=== PATIENT | female | born 1945 | race Caucasian/White ===

== ENCOUNTER 2017-10-06 14:04 | Observation (INO) | payer MEDICARE ==
[~2017-10-06 14:04] MED LIST: ISOVUE-370 76%-LOCM 1 ML ONE
[2017-10-06] MEDS ORDERED: Labetalol HCl 100 MG/20 ML VIAL ONE (15:52)
--- NOTE | 2017-10-06 16:30 | CT ---
CT ANGIOGRAM OF HEAD WITH CONTRAST CT ANGIOGRAM OF NECK WITH CONTRAST Date: 10/06/17 Time: 3:28 p.m. HISTORY: 72-year-old female with acute stroke symptoms: left facial, left lower extremity, and left upper extr emity paresthesia. This stat stroke protocol report was called to Liset Mancia of the ER at 3:45 p.m. on 10/06/17. TECHNIQUE: IV contrast bolus injection. Arterial bolus chasing technique scan from aortopulmonic window to vertex of head. Coronal and sagittal 3D MIP reconstructions. FINDINGS: A2 segment of right anterior cerebral artery is supplied by anterior communicating artery. The A1 seg ment of the right anterior cerebral artery is developmentally absent. There is a right posterior comm unicating artery. There is no thrombus in the M1 segments of the bilateral middle cerebral arteries o r in the carotid siphons. There is no thrombosis or occlusion of the proximal branches of the middle cerebral arteries or the A2 segments of the anterior cerebral arteries. Left vertebral artery is shalonda nant. No high grade focal short segment stenosis or occlusion of the intracranial vertebral arteries or basilar artery. Proximal portions of bilateral superior cerebral arteries and posterior cerebral a rteries are patent. No intracranial aneurysm identified. There is tortuosity of the upper cervical portions of bilateral internal carotid arteries just inferi or to the skull base, with hairpin turns bilaterally. Noncalcified plaque at proximal right internal carotid artery, causing mild, less than 50% stenosis. The only calcified plaque in the carotid system is heavily calcified plaque in the left proximal inte rnal carotid artery for several centimeters, causing mild stenosis. No high grade stenosis of the cer vical vertebral arteries, brachiocephalic artery, bilateral common carotid arteries, or bilateral sub clavian arteries. Nonspecific 1.5 x 1 cm left thyroid nodule. IMPRESSION: 1. No evidence of occlusion or high grade stenosis in the proximal [place] of [place] arteries or major cervical arteries. 2. Noncalcified atherosclerotic plaque causing 30% stenosis of the proximal right internal carot id artery. 3. Heavily calcified atherosclerotic plaque causing 20% stenosis of the proximal left internal c arotid artery. Code CR POS: DANIEL
--- NOTE | 2017-10-06 17:27 | MRI ---
BRAIN MRI WITHOUT CONTRAST: 10/06/17 HISTORY: Stroke. Left sided facial, arm and leg numbness. COMPARISON: None. TECHNIQUE: Brain MRI is performed without intravenous gadolinium administration. Multisequential, multiplanar im aging is performed. FINDINGS: No hemorrhage on the axial gradient echo sequence. The calvarium has a normal T1 marrow signal intensity. Midline brain parenchymal structures are unrem arkable. Minimal T2 and FLAIR white matter hyperintensity due to chronic small vessel ischemic change. Adequate aeration of the sinuses and mastoid air cells. Central arterial flow voids are maintained. Absence restricted diffusion. No parenchymal mass, mass effect or midline shift. Brain volume is age appropriate. Cortical natarajan-whi te matter differentiation is preserved. IMPRESSION: 1. Minimal chronic small vessel ischemic changes white matter. 2. Absent restricted diffusion. No acute infarct. POS: DANIEL
[2017-10-06 18:10] VITALS: BMI 29.3
[2017-10-06 18:22] LABS: Hemoglobin A1c 5.4 % (4.0-6.0)
[2017-10-06] MEDS: Acetaminophen 325 MG TAB PO PRN (18:29)
[2017-10-06 18:44] LABS: CKMB 0.8 ng/mL (0-6.6); Troponin I Less than 0.010 ng/mL (< 0.028)
--- NOTE | 2017-10-06 19:16 | HP ---
PRIMARY CARE PHYSICIAN: Vicente Diana M.D. CHIEF COMPLAINT: Left-sided facial numbness and tingling. HISTORY OF PRESENT ILLNESS: The patient is a very pleasant 72-year-old female with history of hypert ension, who presents to the hospital with complaints of left-sided facial numbness and tingling, left upper extremity and left lower extremity tingling sensation since yesterday. Patient stated that ar ound 6:30 p.m. yesterday, she was up and outside doing some work when she started feeling this tingli ng sensation to her left lower side of the face including the upper lip and lower lip and left tongue and also left upper extremity and left lower extremity. At that time, she went back home. She took an Advil and laid on the couch. Patient stated that she started feeling well and then she had her d inner and went to bed. Patient stated that she woke up this morning, had some residual left-sided fa cial numbness and tingling; however, the left upper extremity and left lower extremity tingling sensa tion had resolved. The patient then went to her PCP since she did have the continuous residual of th is tingling sensation and at that time, the PCP told her to come into the ER for further evaluation. Patient currently continues to have left upper lip and left lower lip residual tingling sensation wi th also a left lung tingling sensation. She denies any nausea, vomiting, diarrhea, abdominal pain, c hest pain, shortness of breath. Denies any visual field deficits or any headaches. The patient stat es that this has never happened to her before. PAST MEDICAL HISTORY: Hypertension, borderline high cholesterol. ALLERGIES: Rubbing iodine for skin prep, so TETANUS VACCINE AND TOXOID, but she is not allergic to I V iodine. PAST SURGICAL HISTORY: She had a cholecystectomy, hysterectomy, and a right knee surgery. FAMILY HISTORY: She denies any history of heart disease. MEDICATIONS: She takes losartan 100 mg q.a.m., metformin 50 mg at bedtime, Singulair 10 mg p.r.n., N orvasc 5 mg at bedtime. REVIEW OF SYSTEMS: The following complete review of systems was negative, unless otherwise mentioned in the HPI or below: Constitutional: Weight loss or gain, ability to conduct usual activities. Sk in: Rash, itching. Eyes: Double vision, pain. ENT/Mouth: Nose bleeding, neck stiffness, pain, te nderness. Cardiovascular: Palpitations, dyspnea on exertion, orthopnea. Respiratory: Shortness of breath, wheezing, cough, hemoptysis, fever or night sweats. Gastrointestinal: Poor appetite, abdom inal pain, heartburn, nausea, vomiting, constipation, or diarrhea. Genitourinary: Urgency, frequenc y, dysuria, nocturia. Musculoskeletal: Pain, swelling. Neurologic/Psychiatric: Anxiety, depressio n. Allergy/Immunologic: Skin rash, bleeding tendency. SOCIAL HISTORY: The patient denies any alcohol use; however, is a former smoker, 1-2 cigarettes. Codie pink still smokes sometimes when she gets stressed. PHYSICAL EXAMINATION: VITAL SIGNS: Afebrile at 96.3, respirations are 18, blood pressure 186/78. She is 100% on room air, pulse is 83. GENERAL: She is awake, alert, oriented x3, does not appear in distress. CARDIOVASCULAR: S1, S2 present. No murmurs, rubs or gallops. LUNGS: Clear to auscultation. No rhonchi, wheeze is noted. ABDOMEN: Soft, nontender. Bowel sounds presents x2. No hepatomegaly, splenomegaly noted. EXTREMITIES: No lower extremity edema. NEUROLOGIC: Vascular rodriguez, 5/5 upper extremity strength, 5/5 lower extremity strength. Sensation in tact bilateral upper and lower extremities. She does have some sensory deficit to her left lower lip and left upper lip area compared to her right upper and lower lip. No tongue deviation noted. LABORATORY DATA: As following: WBC is 8.3, hemoglobin of 14.0, hematocrit 45.0, platelets of 372. Chemistry: Sodium 136, potassium 3.9, BUN of 11, creatinine 0.75. Troponins x1 is negative. The patient had a CT head that showed no evidence of acute intracranial abnormalities. She also had a CTA done in the ER that indicated no evidence of occlusion in the high grade stenosis. She does fishman ve atherosclerotic plaque of 30% stenosis of the proximal right internal carotid artery and heavily c alcified atherosclerotic plaque, mid plaque causing mild 20% stenosis of the left proximal internal c arotid artery. ASSESSMENT AND PLAN: The patient is a very pleasant 72-year-old female who presents to the hospital with tingling of her left lower lip area. 1. Transient ischemic attack. We will start the patient on aspirin. She does not take aspirin rodney y. We will start the patient on a statin. We will check lipid level in the morning. We will do MRI brain. We will get Neurology consult. 2. Hypertension. We will continue some of her home medications. We will continue to monitor closel y. 3. Deep venous thrombosis prophylaxis. We will put patient on subcu heparin.
[2017-10-06] MEDS: Atorvastatin Calcium 40 MG TAB PO SCH (20:01)
[2017-10-06] MEDS: Heparin 5,000 UNITS/ML VIAL SC SCH (20:14)
[2017-10-06] MEDS ORDERED: Morphine 4 MG/ML VIAL SLOW IVP SCH (22:15)
[2017-10-07] MEDS: Zolpidem Tartrate 5 MG TAB PO SCH (00:25)
[2017-10-07] MEDS ORDERED: HYDROcodone/Acetaminophen 5/325 mg Tablet PO SCH ×2 (00:30→06:00)
[2017-10-07] MEDS ORDERED: Ondansetron HCl/PF 4 MG/2 ML Vial SLOW IVP SCH (06:00)
[2017-10-07 06:28] LABS: Cardiac Risk 4.8 (Less than 4.5)
[2017-10-07] MEDS: Aspirin 81 mg Enteric Coated Tablet PO SCH (09:55)
[2017-10-07] MEDS: Heparin 5,000 UNITS/ML VIAL SC SCH ×2 (09:55→20:42)
--- NOTE | 2017-10-07 10:56 | CT ---
CT ANGIOGRAM OF HEAD WITH CONTRAST CT ANGIOGRAM OF NECK WITH CONTRAST Date: 10/06/17 Time: 3:28 p.m. HISTORY: 72-year-old female with acute stroke symptoms: left facial, left lower extremity, and left upper extr emity paresthesia. This stat stroke protocol report was called to Liset Mancia of the ER at 3:45 p.m. on 10/06/17. TECHNIQUE: IV contrast bolus injection. Arterial bolus chasing technique scan from aortopulmonic window to vertex of head. Coronal and sagittal 3D MIP reconstructions. FINDINGS: A2 segment of right anterior cerebral artery is supplied by anterior communicating artery. The A1 seg ment of the right anterior cerebral artery is developmentally absent. There is a right posterior comm unicating artery. There is no thrombus in the M1 segments of the bilateral middle cerebral arteries o r in the carotid siphons. There is no thrombosis or occlusion of the proximal branches of the middle cerebral arteries or the A2 segments of the anterior cerebral arteries. Left vertebral artery is shalonda nant. No high grade focal short segment stenosis or occlusion of the intracranial vertebral arteries or basilar artery. Proximal portions of bilateral superior cerebral arteries and posterior cerebral a rteries are patent. No intracranial aneurysm identified. There is tortuosity of the upper cervical portions of bilateral internal carotid arteries just inferi or to the skull base, with hairpin turns bilaterally. Noncalcified plaque at proximal right internal carotid artery, causing mild, less than 50% stenosis. The only calcified plaque in the carotid system is heavily calcified plaque in the left proximal inte rnal carotid artery for several centimeters, causing mild stenosis. No high grade stenosis of the cer vical vertebral arteries, brachiocephalic artery, bilateral common carotid arteries, or bilateral sub clavian arteries. Nonspecific 1.5 x 1 cm left thyroid nodule. IMPRESSION: 1. No evidence of occlusion or high grade stenosis in the proximal [place] of [place] arteries o r major cervical arteries. 2. Noncalcified atherosclerotic plaque causing 30% stenosis of the proximal right internal car otid artery. 3. Heavily calcified atherosclerotic plaque causing 20% stenosis of the proximal left internal carotid artery. Code CR
[2017-10-07] MEDS ORDERED: diphenhydrAMINE 50 MG/ML VIAL IVP SCH ×2 (14:20→15:00)
[2017-10-07] MEDS ORDERED: Metoclopramide HCl 10 MG/2 ML VIAL IVP SCH ×2 (14:30→23:30)
[2017-10-07] MEDS: Acetaminophen 325 MG TAB PO PRN (15:00)
[2017-10-07] MEDS ORDERED: Famotidine 40 MG/4 ML VIAL SLOW IVP SCH (15:30)
[2017-10-07] MEDS ORDERED: Ketorolac Tromethamine 30 MG/ML VIAL IVP SCH ×2 (15:30→23:30)
--- NOTE | 2017-10-07 17:03 | CON ---
DATE OF CONSULTATION: 10/07/2017 NEUROLOGY CONSULTATION CONSULTING PHYSICIAN: Hospitalist service. IMPRESSION: 1. Transient tingling suggestive of a transient ischemic attack. 2. Migraine. 3. Hypertension. 4. Borderline hyperlipidemia. 5. Tobacco use. PLAN: 1. Aspirin 81 mg per day. 2. Low-dose statin. 3. Address migraine. HISTORY OF PRESENT ILLNESS: Ms. Olson is a 72-year-old woman who was seen by Dr. Delaney prior to ad mission. She complained of a 30-minute episode of left-sided numbness involving the face, arm and le g. There is no associated weakness or slurred speech. She did not develop a headache with it. She was sent to the emergency room for evaluation. She subsequently developed a migraine and since she w as admitted. She was just recently given the migraine cocktail. She had an MRI of the brain, which was unremarkable. Her CTA in the emergency room showed some minimal atherosclerotic changes. Her EK G shows normal sinus rhythm. PAST MEDICAL HISTORY: As listed above. ALLERGIES: IODINE and TETANUS. FAMILY HISTORY: Noncontributory. SOCIAL HISTORY: Positive for tobacco. REVIEW OF SYSTEMS: No lateralized weakness or numbness at this point. No chest pain or shortness of breath. PHYSICAL EXAMINATION: GENERAL: She is a well-nourished elderly woman, lying in bed with her eyes covered. HEENT: Notable for some photophobia. NECK: Supple. EXTREMITIES: No cyanosis. NEUROLOGIC: She is alert and cooperative. Her speech is fluent and clear. Her exam is nonfocal. SUMMARY: Given her risk factors, I would be proactive with an anti-stroke protocol with aspirin and a statin. I would be happy to follow up with her as an outpatient.
[2017-10-07] MEDS ORDERED: Ketorolac Tromethamine 30 MG/ML VIAL IVP PRN (18:00)
[2017-10-07] MEDS: Atorvastatin Calcium 40 MG TAB PO SCH (20:42)
[2017-10-08] MEDS ORDERED: Zolpidem Tartrate 5 MG TAB PO SCH ×2 (01:30→01:45)
[2017-10-08] MEDS: Zolpidem Tartrate 5 MG TAB PO SCH (09:00)
[2017-10-08] MEDS: Aspirin 81 mg Enteric Coated Tablet PO SCH (09:15)
[2017-10-08] MEDS: Heparin 5,000 UNITS/ML VIAL SC SCH (09:15)
[2017-10-08 12:09] VITALS: BP 144/66; TEMP 98.3
--- NOTE | 2017-10-08 13:33 | DIS ---
DATE OF ADMISSION: 10/06/2017 DATE OF DISCHARGE: 10/08/2017 PRIMARY CARE PHYSICIAN: Vicente Diana M.D. DISCHARGE DIAGNOSES: 1. Transient ischemic attack. 2. Migraine headaches. 3. Hypertension. 4. High cholesterol. HOSPITAL COURSE: The patient is a very pleasant 72-year-old female who initially presented to the [facility] with complaints of left lower facial numbness and tingling and also left upper and lower extre mity numbness and tingling. The patient stated that her symptoms had started 24 hours prior to comin g into the hospital. However, since the numbness and tingling around her lower lip persisted, she de cided to come to the hospital for further evaluation. The patient initially had a CT brain which was negative. She underwent a CT angiography given her persistent tingling and numbness of her lower li p which indicated that she had no occlusion. She did have some 30% stenosis to the proximal right in ternal carotid artery and heavily calcified atherosclerotic plaque causing 20% stenosis of the proxim al left internal carotid artery. The patient also had a brain MRI which indicated minimal chronic sm all vessel ischemia changes white matter. There was no restricted diffusion or acute infarct. Steve nt continued to have persistent tingling to her left upper and lower extremity, left upper lip and le ft lower lip. The patient was seen by Neurology who recommended continuing aspirin, adding statin an d following up with PCP as an outpatient. The patient also underwent an echocardiogram which indicat ed an EF of 50%-55% with mild mitral regurgitation and mild tricuspid regurgitation. Patient while i n the hospital had a migraine headache and was treated with IV Reglan and IV Benadryl and also IV Tor adol which improved her headache. HOME MEDICATIONS: Are as the following: Singulair 10 mg p.o. p.r.n., Norvasc 5 mg at bedtime, metop rolol 50 mg at bedtime, losartan 100 mg p.o. daily. I gave her Toradol 10 mg q.8 hours p.r.n. for on ly 3 days, Pepcid 20 mg b.i.d., atorvastatin 40 mg daily, aspirin 81 mg daily. Patient will follow up with primary as outpatient. PHYSICAL EXAMINATION: VITAL SIGNS: Temperature 98.3, 72, 20, 100% room air, 144/66. GENERAL: She is awake, alert, oriented x3. Does not appear in distress. CARDIOVASCULAR: S1, S2 present. No murmurs, rubs or gallops. ABDOMEN: Soft and nontender. Bowel sounds are present x2. NEUROLOGIC: Intact 5/5 bilateral upper extremity strength and 5/5 lower extremity strength. Sensati on is intact. She still has some tingling and numbness on her left upper and lower lip. The patient will be discharged home. Follow up with primary as outpatient.
== END 2017-10-08 13:39 | disposition home or self-care (01) ==
LOC: ERS 14:04 → 2SE 15:48 → INTOOBSV 15:48
PROVIDERS: ADMIT Internal Medicine; ATTEND Internal Medicine
DX: G45.9 Transient cerebral ischemic attack, unspecified (principal); G43.909 Migraine, unspecified, not intractable, without status migrainosus; I10 Essential (primary) hypertension; E78.00 Pure hypercholesterolemia, unspecified; F17.210 Nicotine dependence, cigarettes, uncomplicated; Z88.7 Allergy status to serum and vaccine; Z79.899 Other long term (current) drug therapy; Z98.890 Other specified postprocedural states
CPT/HCPCS: 70496; 70498; 70551; 80061; 82553; 83036; 84484; 93306; 96374; 97139 ×3; 97535; 99285; G8978; G8979; G8980; G8987; G8988; G8989; 36415; A4216; G8996-GN-CH; G8997-GN-CH; G8998-GN-CH; J1200; J1644; J1885; J2270; J2405; J2765